=== PATIENT | male | born 1990 | race African-American/Black ===

== ENCOUNTER 2017-05-01 16:35 | Emergency (ER) | payer BC ==
[~2017-05-01] VITALS: Ht 172.7 cm; Wt 69.0 kg
[2017-05-01] MEDS ORDERED: IBUPROFEN 800800 M1 PO (16:38)
[2017-05-01 18:21] LABS: URINE BILIRUBIN NEGATIVE (Negative); URINE BLOOD NEGATIVE (Negative); URINE COLOR YELLOW; URINE GLUCOSE-RANDOM* NEGATIVE (Negative); URINE KETONES NEGATIVE (Negative); URINE NITRITE NEGATIVE (Negative); URINE PROTEIN (DIPSTICK) NEGATIVE (Negative); URINE UROBILINOGEN 0.2 E.U./dl (0.2-1.0)
[2017-05-01 18:40] LABS: HEMATOCRIT 42.7 % (42.0-52.0); MCH 25.9 pg (26.0-34.0); MCHC 32.9 g/dL (28.0-37.0); MCV 78.8 fL (80.0-100.0); PLATELET COUNT 231 thou/uL (150-400); RBC 5.42 mil/uL (4.50-6.00); RDW 13.9 % (10.5-14.5)
[2017-05-01 18:43] LABS: MANUAL DIFF YES
[2017-05-01 18:48] LABS: POTASSIUM 3.7 mmol/L (3.5-5.1)
[2017-05-01] MEDS ORDERED: NAPROSYN500 MG PO (19:08)
[2017-05-01 19:13] LABS: ABSOLUTE NEUTROPHILS 2.3 thou/uL (1.4-8.2); ATYPICAL LYMPHS 4 %; TOTAL CELL COUNT 100
[2017-05-01 19:28] VITALS: BP 128/88
== END 2017-05-01 19:29 | disposition home or self-care (01) ==
LOC: ER 16:35
PROVIDERS: Physician Assistant
DX: M79.1 Myalgia (principal); J06.9 Acute upper respiratory infection, unspecified; B34.9 Viral infection, unspecified; Z88.0 Allergy status to penicillin